=== PATIENT | female | born 1995 | race Two or more races ===

== ENCOUNTER 2022-10-05 13:31 | Emergency (ER) | payer MEDICAID, OTHER ==
[~2022-10-05] VITALS: Ht 167.6 cm; Wt 63.1 kg
[2022-10-05 15:00] VITALS: BP 116/85
[2022-10-05] MEDS ORDERED: TRIA0.1O TOP (15:13)
== END 2022-10-05 15:43 | disposition home or self-care (01) ==
LOC: ER 13:31
DX: L23.9 Allergic contact dermatitis, unspecified cause (principal)

== ENCOUNTER 2022-10-18 11:56 | Emergency (ER) | payer MEDICAID ==
[~2022-10-18] VITALS: Ht 167.6 cm; Wt 67.8 kg
[~2022-10-18 11:56] MED LIST: TRIA0.1O TOP
[2022-10-18 12:15] VITALS: BP 108/72
[2022-10-18] MEDS ORDERED: EPINEPHrine HCL 1 MG/1 ML AMP SC ONE (14:00)
[2022-10-18] MEDS ORDERED: methylPREDNISolone SOD SUCC 125 MG/2 ML VL IM ONE (14:00)
[2022-10-18] MEDS ORDERED: METH4PAK PO (14:18)
== END 2022-10-18 14:18 | disposition home or self-care (01) ==
LOC: ER 11:56
DX: T78.40XA Allergy, unspecified, initial encounter (principal); R22.0 Localized swelling, mass and lump, head; X58.XXXA Exposure to other specified factors, initial encounter
CPT/HCPCS: 96372; 99284; J0171; J2930